=== PATIENT | female | born 1985 | race Caucasian/White ===

== ENCOUNTER 2018-03-23 01:04 | Emergency (ER) | END 2018-03-23 06:30 | disposition home or self-care (01) ==

== ENCOUNTER 2018-06-02 23:20 | Outpatient (CLI) | END 2018-06-03 01:40 | disposition home or self-care (01) ==

== ENCOUNTER 2018-06-03 01:33 | Emergency (ER) | END 2018-06-03 03:56 | disposition home or self-care (01) ==